=== PATIENT | female | born 1945 | race Two or more races ===

== ENCOUNTER 2019-11-24 15:25 | Inpatient (IN) | payer OTHER ==
[~2019-11-24] VITALS: Ht 152.4 cm; Wt 50.3 kg
[2019-11-24 15:32] VITALS: Ht 152.4 cm; Wt 50.3 kg
[2019-11-24 17:17] LABS: ALKALINE PHOSPHATASE 84 U/L (46-116); ALT/SGPT 9 U/L (14-59); AST/SGOT 24 U/L (15-37); BILIRUBIN TOTAL 0.18 mg/dL (0.20-1.00); CALCIUM 12.8 mg/dL (8.5-10.1); CHLORIDE SERUM 96 mmol/L (98-107); GLUCOSE SERUM 276 mg/dL (74-106); SODIUM SERUM 136 mmol/L (136-145); TOTAL PROTEIN, SERUM 6.2 g/dL (6.4-8.2)
[2019-11-24 17:24] LABS: ALBUMIN 2.3 g/dL (3.4-5.0); CARBON DIOXIDE 7.2 mmol/L (21-32); POTASSIUM SERUM 6.7 mmol/L (3.5-5.1)
[2019-11-24 17:25] LABS: CREATININE SERUM 6.7 mg/dL (0.6-1.0); PLATELET COUNT 317 x10^3mcL (130-400)
[2019-11-24 17:28] LABS: RED CELL DISTRIBUTION WIDTH 15.6 % (11.5-14.5)
[2019-11-24 17:44] LABS: BAND NEUTROPHIL 2 % (0-10); BASOPHIL 0 % (0-2); MONOCYTE 3 % (0-7); SEGMENTED NEUTROPHILS 91 % (37-75)
[2019-11-24 17:46] LABS: burr cell (echinocyte) 2+; rbc morphology (normal/abnorm) ABNORMAL (NORMAL)
[2019-11-25 01:35] VITALS: BP 63/25
== END 2019-11-25 02:12 | disposition expired | DRG 871 ==
LOC: ED 15:25 → IC 18:26 → ED 18:26 → MU 11-25 01:08 → DU 11-25 01:09
PROVIDERS: Emergency Medicine; ADMIT Family Medicine
DX: A41.9 Sepsis, unspecified organism (principal); R65.21 Severe sepsis with septic shock; G93.41 Metabolic encephalopathy; I21.A1 Myocardial infarction type 2; N17.0 Acute kidney failure with tubular necrosis; E43 Unspecified severe protein-calorie malnutrition; E87.2 Acidosis; K92.2 Gastrointestinal hemorrhage, unspecified; R57.8 Other shock; E87.5 Hyperkalemia; E11.65 Type 2 diabetes mellitus with hyperglycemia; K70.30 Alcoholic cirrhosis of liver without ascites; F10.20 Alcohol dependence, uncomplicated; Z66 Do not resuscitate; Z89.512 Acquired absence of left leg below knee; Z68.25 Body mass index [BMI] 25.0-25.9, adult
CPT/HCPCS: 82962; C9113; G0378; J1815; J2060; J2270; J3430; J3490; J7030; J7040; P9016